=== PATIENT | female | born 2005 | race Caucasian/White ===

== ENCOUNTER 2025-03-07 12:47 | Inpatient (IN) | payer OTHER ==
[2025-03-07] MEDS ORDERED: Calcium Carbonate 500 MG Tab Chew PO PRN (14:55)
[2025-03-07] MEDS ORDERED: Polyethylene Glycol 3350 17 gm PO PRN (14:55)
[2025-03-07] MEDS ORDERED: Melatonin 3 MG Tab PO PRN (14:55)
[2025-03-07] MEDS ORDERED: Aluminum Hydroxide 320MG/5ML 473 ML PO PRN (14:55)
[2025-03-07] MEDS ORDERED: Acetaminophen 325 MG TABLET PO PRN (14:55)
[2025-03-07] MEDS ORDERED: Ondansetron 4 MG SoluTab MM PRN (14:55)
[2025-03-07] MEDS ORDERED: Ibuprofen 600 MG Tab PO PRN (14:55)
[2025-03-07] MEDS ORDERED: LORazepam 2 MG Tab PO PRN (15:00)
[2025-03-07] MEDS ORDERED: LORazepam 2 MG/ML 1ML Injection IM PRN (15:00)
--- NOTE | 2025-03-07 16:47 | NUR ---
ADMISSION NOTE PT PREFERRED NAME IS NICOLLE. PT IS AA&OX4 ON ARRIVAL. SHE REPORTS THAT SHE HAS AUTISM AND DOES NOT DO WELL IN A PSYCH UNIT. SHE STATES THAT SHE WAS TOLD SHE WAS GOING TO A "[facility]" THIS RN USED ACTIVE LISTENING AND EDUCATED THE PT ON WHAT THIS UNIT DOES. SHE IS EASILY REDIRECTABLE AND GOES FROM AGITATED TO APPROPRIATELY ASKING AND ANSWERING QUESTIONS. PT STATES THAT THIS WAS NOT AN INTENTIONAL OD. SHE STATES THAT SHE HAD TAKEN SOME TRAZADONE, THEN FORGOT AND TOOK MORE. SHE STATES THAT SHE STARTED FEELING WEIRD AND TOLD HER BF SHE NEEDED TO GO TO THE ER. PT STATES THAT SHE HAS HAD ATTEMPTS IN THE PAST AND WOULD REPORT. SHE DENIES VH,SI, BUT REPORTS AH. REPORTS THAT SHE HEARS VOICES ALL THE TIME. SHE HAS BEEN ON A MOOD STABILIZER BUT DOES NOT RECAL WHAT. SHE ALSO TAKES TRAZADONE AND REPORTS THE DOSE AT 500MG PRN. NOTIFIED. ADMISSION PAPERWORK SIGNED AND IN CHART. PT ORIENTATED TO THE UNIT. NICOTINE REPLACEMENT ORDERED. PT DECLINES INFORMATION ON SMOKIMG CEASATION. PT DECLINED SNACK AND WENT TO ROOM TO REST. MOTHER CALLED AND UPDATED ON PT. WILL CONTINUE POC
[2025-03-07 17:33] VITALS: BP 117/86
[2025-03-07] MEDS ORDERED: Nicotine Polacrilex 2 MG Gum PO PRN (17:45)
--- NOTE | 2025-03-08 04:25 | NUR ---
SHIFT SUMMARY PT RESTED/SLEPT QUIETLY FOR MOST OF SHIFT, WOKE UP AT [phone]~ AND WENT INTO SENSORY ROOM TO READ. PT BECAME AGITATED AND CRIED/HIT HER HEAD AND LEG, TALKING ABOUT FRUSTRATION AT BEING HERE AND NOT WANTING TO BE IN A PSYCH UNIT, NOT WANTING TO GO HOME W/ HER MOM, AND WANTING TO STAY IN [place] W/ HER BOYFRIEND. PT DECLINED ANXIOLYTIC. PT APPEARS ABLE TO SELF-SOOTHE AND IS NOW IN ROOM. DENIES SI, HI, AVTH.
[2025-03-08 07:40] LABS: CHOL/HDL RATIO 3.1; Cholesterol 250 mg/dL (50-200); HDL Cholesterol 80 mg/dL (>39); LDL/HDL RATIO 1.9; Low Density Lipoprotein Chol 152 mg/dL (0-110); Triglycerides 90 mg/dL (30-140); Very Low Density Lipoprot Chol 18 mg/dL (6-28)
[2025-03-08 08:01] VITALS: BP 108/85
[2025-03-08] MEDS ORDERED: Multivitamins 1 Tab PO SCH (09:00)
[2025-03-08] MEDS ORDERED: ARIPiprazole 10 MG Tab PO SCH (16:00)
--- NOTE | 2025-03-08 18:09 | NUR ---
SHIFT SUMMARY PT AA&OX4. SHE IS PLEASANT AND COOPERATIVE WITH CARE. SHE IS COMPLIANT WITH MEDICATIONS. MOOD HAS BEEN EUTHYMIC AFFECT CONGRUENT. PT IS DOING WELL ON THE MILIEU. SHE IS INTERACTING WELL WITH PEERS. SHE DENIES SI, VH, ENDORSES AH. SHE IS HAPPY WITH THE PLAN OF CARE AND DC PLAN. PT UP TO GROUPS AND MEALS. PT SHOWERED. WILL CONTINUE POC
[2025-03-08 20:23] VITALS: BP 118/76
--- NOTE | 2025-03-09 05:35 | NUR ---
SHIFT SUMMARY NO ACUTE EVENTS THIS EVVENING. ZOFRAN GIVEN AT START OF SHIFT D/T NAUSEA. WENT TO SNACKTIME, WATCHED TV IN DAYROOM, AND WENT TO BED. DENIES SI, HI, AVTH. PLEASANT AND COOPERATIVE. WHEN ASKED ABOUT AUDITORY HALLUCINATIONS, PT STATES SHE HASN'T HEARD ANY SINCE TAKING MEDS TODAY. ENDORSED BEFORE BADS THAT SHE WOULD HEAR SOMEONE SAY "NICOLLE" AND FEEL SOMEONE TAPPING ON HER SHOULDER.
[2025-03-09 07:02] VITALS: BP 112/75
--- NOTE | 2025-03-09 11:34 | NUR ---
IMPORTANT DISCHARGE INFORMATION PATIENT TO DISCHARGE 03/10/25 AT 1PM. SHE WILL BE PICKED UP BY HER BOYFRIEND () . SHE WILL BE STAYING WITH HIM IN [place] UNTIL 03/17/25. HER PARENTS LIVE IN [place], AND WILL FLY OUT TO PICK HER UP. NICKY WILL LIVE IN [place] FOR 6 MONTHS AND THAN DECIDE TO RETURN TO [place]. PHARMACY: [facility] IN [place] ALL FOLLOW UP APPOINTMENTS WILL BE MADE IN [place] WITH PARENTS GUIDANCE. MOTHER CLARISSA) . RESOURCES: [phone] FOR CRISIS INTERVENTION AND OR EMOTIONAL SUPPORT. SHE MAY CALL OR TEXT THIS 17/05 LINE EVEN IF SHE IS JUST LOOKING FOR CONVERSATION. THERE ARE COUNSELORS TO SPEAK WITH IF REQUESTED.
[2025-03-09] MEDS ORDERED: ARIPiprazole 5 MG Tab PO ONE ×2 (12:55→16:05)
--- NOTE | 2025-03-09 16:48 | NUR ---
IMPORTANT PATIENT INFORMATION PATIENT WILL BE USEING [facility] IN [facility]
--- NOTE | 2025-03-09 17:49 | NUR ---
SHIFT SUMMARY PT AA&OX4. PLEASANT AND COOPERATIVE WITH CARE. SHE IS MEDICATION COMPLAINT. SHE DID REPORT SOME NAUSEA THIS MORNING BUT HAS IMPROVED. SPEECH AND EYE CONTACT ARE APPROPRIATE. MOOD IS EUTHYMIC, AFFECT IS CONGRUENT. SHE DENIES SI, AVH. SHE SILVA BEEN UP FOR SHOWER, MEALS AND GROUP. SHE IS HAPPY ABOUT DISCHARE PLAN. AMBILIFY INCREASED TO 15MG. WILL CONTINUE POC
[2025-03-09 19:55] VITALS: BP 124/83
[2025-03-09] MEDS ORDERED: ARIPiprazole 5 MG Tab PO SCH (21:00)
--- NOTE | 2025-03-10 05:22 | NUR ---
SHIFT SUMMARY: PT A/O X4. UP IN THE GROUP ROOM WATCHING TV WITH PEERS. INTERACTS WELL AND SMILING. DENIES TO BE SI, HI AND AVH. PT IS GLAD SHE WILL BE GOING HOME TODAY. UP FOR SNACK AND MEDICATIONS. WILL CONTINUE TO MONITOR.
[2025-03-10 08:13] VITALS: BP 113/84
[2025-03-10] MEDS ORDERED: Nicotine 21 MG PATCH TOP ONE (14:35)
--- NOTE | 2025-03-10 17:59 | NUR ---
SHIFT SUMMARY- PATIENT WAS SCHEDULED TO DISCHARGE TODAY HOWEVER WHEN THE PROVIDER FOUND OUT THAT THE PLANNED PERSON TO ACCOUNTING ASSOCIATE THE PATIENT CHANGED FROM HER MOTHER TO HER BOYFRIEND, HE DECIDED TO RESCHEDULE THE DISCHARGE. THE PATIENT QUICKLY ESCALATED WHEN SHE WAS TOLD SHE WASN'T LEAVING. SHE WAS YELLING AT THE PROVIDER AND CRYING. SHE DID CALM QUICKLY, AND APOLOGIZED FOR HER ACTIONS SOON AFTER THE EVENT. SHE WAS GIVEN AN ATIVAN TO DECREASE HER ANXIETY. pATIENT ENDORSES VERBAL HALLUCINATION THAT ARE "MUMBLED VOICES" AND SHE UNDERSTANDS THAT THEY ARE NOT REAL. pATIENT DENIES SUICIDAL THOUGHTS, HOMICIDAL THOUGHTS AND HAS BEEN SAFE. PATIENT WAS ABLE TO VISIT WITH HER BOYFRIEND TODAY, AND PLANS TO DO VISIT TOMORROW WELL. PATIENT IS VISITING IN THE SENSORY ROOM WITH ANOTHER PATIENT CURRENTLY AND APPEARS TO BE ENJOYING HERSELF.
[2025-03-10 19:15] VITALS: BP 127/90
--- NOTE | 2025-03-11 04:49 | NUR ---
SHIFT SUMMARY: PATIENT WAS IN THE DAYROOM WATCHING TELEVISION WITH STAFF AND PEERS AT THE BEGINNING OF THE SHIFT. SHE SPOKE WITH RN ABOUT HER DAY, AND STATED THAT SHE HAD "YELLED AT THE DOCTOR" BUT "I WAS SO SORRY, I REALLY MESSED UP". PATIENT WAS ENCOURAGED TO LET IT GO BEHIND HER, SHE APOLOGIZED. SHE WAS ASSURED THAT THE DOCTOR ACCEPTED HER APOLOGY. SHE STATED THAT SHE FEELS THIS UNIT "IS HELPFUL" AND "I'M LEARNING A LOT". SHE STATED THAT THE ABILIFY "MAKES ME SLEEPY, BUT I THINK IT'S GOING TO HELP ME A LOT". SHE DENIED SUICIDAL IDEATION OR THOUGHTS OF SELF HARMING THIS SHIFT. SHE STATED "I HAVE A NICE ROOMMATE" AND THAT SHE LIKES "MOST OF THE PEOPLE HERE". SHE PARTICIPATED IN SNACK TIME AT 1999, AND WENT TO BED SHORTLY AFTERWARD. SHE WAS COMPLIANT WITH MEDICATION ADMINISTRATION. SHE SPENT MOST OF THE SHIFT IN BED RESTING WITH EYES CLOSED AND RESPIRATIONS CONFIRMED. CONTINUING TO MONITOR FOR SAFETY WITH Q15 MINUTE CHECKS.
[2025-03-11 08:11] VITALS: BP 114/82
[2025-03-11] MEDS ORDERED: Nicotine 21 MG PATCH TOP SCH (09:00)
[2025-03-11] MEDS ORDERED: Magnesium Hydroxide Conc 10 ML UDC PO PRN (11:20)
--- NOTE | 2025-03-11 16:53 | NUR ---
SHIFT SUMMARY ASSUME CARE OF PT AT 0900. PT HAS BEEN ENGAGED ALL SHIFT WITH HER PEERS, PLAYING CARDS AND ON THE PATIO. SHE HAS ATTENDED ALL MEALS/SNACKS. SHE DID COMPLAIN OF HER ABDOMEN BEING PAINFUL. GAVE HER MILK OF MAG PER HER REQUEST AND WE HAVEN'T ANYTHING FURTHER REGARDING HER ABDOMEN. DENIES SI/HI/AVH. HER BOYFRIEND CAME FOR A VISIT. PT TOLD HIM HE NEEDS TO COME PICK HER UP TOMORROW SHE WILL BE D/C IN THE MORNING. HE WAS INFORMED, ON HIS WAY OUT, THAT THIS WAS NOT THE PLAN AT THIS TIME, HE UNDERSTOOD. PT RECEIVED Q15 VISUAL SAFETY CHECKS THROUGHOUT THE SHIFT.
--- NOTE | 2025-03-11 17:37 | NUR ---
ADDITIONAL INFO TO SHIFT NOTE PT IS AT THE DESK PRESENTING WITH EYE TICS AND JERKING OF HER NECK. SHE STATES THIS IS NORMAL FOR HER, IT COMES AND GOES. SHE STS SHE'S HAD IT FOR QUITE SOME TIME AND HAS BEEN EVALUATED FOR IT. SHE WAS TOLD IT IS MOTOR SKILL ISSUE, HAS NOT BEEN TREATED FOR IT, PER PT. SHE DENIES FEELING DIFFERENT
[2025-03-11 19:09] VITALS: BP 113/78
--- NOTE | 2025-03-12 04:36 | NUR ---
SHIFT SUMMARY PATIENT UP IN DAY ROOM WATCHING TV AND VISITING WITH PEERS AND STAFF. DENIES SI, HI, OR AVH. COOPERATIVE WITH MEDICATIONS. VERBALIZED THAT SHE IS FEELING BETTER AND WANTING TO GO HOME. APPEARS TO BE SLEEPING WELL T/O THE NIGHT RESP EVEN AND UNLABORED. CONTINUE TO MONITOR Q15MIN.
[2025-03-12 08:27] VITALS: BP 115/87
[2025-03-12] MEDS ORDERED: ABILIFY MYCITE15 M2 PO (12:47)
[2025-03-12] MEDS ORDERED: MULVITA PO (12:48)
[2025-03-12] MEDS ORDERED: MELA3 PO (12:48)
[2025-03-12] MEDS ORDERED: NICO21TP TOP (12:48)
--- NOTE | 2025-03-12 15:11 | NUR ---
PATIENT DISCHARGED TODAY AT 1407. SHE WILL BE GOING BACK TO [place] WITH HER SO. SHE LEFT IN [place] [facility].SHE DENIES ANY SI, VH OR AH. SHE WAS DISCHARGED WITH TELEPHONE SUPPORT 17/05. MEDICATIONS CALLED INTO PHARMACY OF CHOICE. ENCOURAGED HER TO CALL WITH ANY QUESTIONS OR CONCERNS.
== END 2025-03-12 14:07 | disposition home or self-care (01) | DRG 885 ==
LOC: BHU 12:47
PROVIDERS: ADMIT Student in an Organized Health Care Education/Training Program
PROC: GZHZZZZ Group Psychotherapy (ICD-10-PCS; principal; 2025-03-08)
DX: F31.81 Bipolar II disorder (principal); R45.851 Suicidal ideations; F90.9 Attention-deficit hyperactivity disorder, unspecified type; F60.3 Borderline personality disorder; Z56.0 Unemployment, unspecified; Z91.51 Personal history of suicidal behavior
CPT/HCPCS: 36415; 80061; 83036; 93005; 93010; A9270